=== PATIENT | male | born 1950 | race Caucasian/White ===

== ENCOUNTER → 2020-01-21 | Outpatient (CLI) | payer MEDICARE ==
[~2020-01-21] MED LIST: CATHETER FLUSH 10 ML SYR IV PRN; HOLD METFORMIN - RECEIVED CONTRAST 20 ML VIAL IV SCH; IOHEXOL 350 MG/ML 100 ML (OMNIPAQUE 350) VIAL IV ONE; NS 100 ML (IVPB) BAG IV ONE
--- NOTE | 2020-01-21 10:48 | Diagnostic Imaging Report ---
EXAMINATION: CT Abdomen and Pelvis with intravenous contrast. TECHNIQUE: Multiple contiguous axial images were obtained through the abdomen and pelvis after the uneventful administration of intravenous contrast. All CT scans use one or more of the following dose optimizing techniques: automated exposure control, MA and/or KvP adjustment based on a patient size and exam type, or iterative reconstruction. HISTORY: Right lower quadrant pain. COMPARISON: None available. FINDINGS: Limited views of the lower thorax are unremarkable. There is an indeterminate 8 mm lesion in segment II of the liver. There is no biliary ductal dilation. Gallbladder is normal. Pancreas is normal. Spleen is normal. Adrenal glands are normal. The kidneys are normal. There is no hydronephrosis. Urinary bladder is normal. Visualized bowel is normal in caliber without obstruction or inflammation. The appendix is normal. No free fluid or air. No abdominal or pelvic lymphadenopathy. 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 There is no aortic aneurysm. There are no suspicious osseous lesions. IMPRESSION: 1. 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 2. Normal appendix. 3. Indeterminate 8 mm lesion in segment II of the liver. In the absence of a known malignancy, no specific follow-up is needed. Otherwise, liver MRI with Gadavist is recommended. Dictated by: Dictated on workstation # [id number]
== END ==
LOC: RAD FS 09:53
PROVIDERS: ATTEND Family Medicine
DX: I74.5 Embolism and thrombosis of iliac artery (principal); K76.89 Other specified diseases of liver
CPT/HCPCS: 74177

== ENCOUNTER 2020-02-19 06:49 | Emergency (ER) | payer MEDICARE, OTHER ==
[2020-02-19] MEDS ORDERED: FAMOTIDINE 20MG/2ML IV (PEPCID) IV STA (07:05)
--- NOTE | 2020-02-19 07:05 | ED Abdominal Pain ---
General Stated Complaint: ABD PAIN Source of Information: Patient History of Present Illness Date Seen by Provider: Feb 19, 2020 Time Seen by Provider: 06:57 Initial Comments 69-year-old male presents with abdominal pain. Patient reports he's been having abdominal pain on and off for about 3 weeks. It is located in the mid abdomen. He reports that for the last couple days she's had it that got worse yesterday. Had a normal bowel movement. No nausea vomiting diarrhea fevers or chills. He was seen couple weeks ago was started on Cipro Flagyl but has not finished them. He stopped taking the Flagyl because he felt is getting worse. No other systemic complaints. Allergies and Home Medications Allergies Coded Allergies: No Known Drug Allergies (Unverified , 02/19/20) Home Medications Dicyclomine HCl 20 Mg Tablet, 20 MG PO Q6H PRN for PAIN-MODERATE (5-7) Prescribed by: BRANDON ISRAEL on 02/19/20 0916 Patient Home Medication List Home Medication List Reviewed: Yes Review of Systems Review of Systems Constitutional: No chills, No fever Respiratory: Denies Cough, Denies Shortness of Air Cardiovascular: Denies Chest Pain, Denies Irregular Heart Rate Gastrointestinal: Abdominal Pain; Denies Diarrhea, Denies Nausea, Denies Vomiting Genitourinary: No Symptoms Reported Musculoskeletal: no symptoms reported Skin: no symptoms reported Psychiatric/Neurological: No Symptoms Reported Past Giispvj-Ytzjws-Vsqrqj Hx Past Med/Social Hx: Reviewed Nursing Past Med/Soc Hx Patient Social History Recent Foreign Travel: No Contact w/Someone Who Travel: No Physical Exam Vital Signs Vital Signs - First Documented 02/19/20 06:57 Temp 36.8 Pulse 88 Resp 16 B/P (MAP) 148/70 (96) Pulse Ox 95 O2 Delivery Room Air Capillary Refill : Height/Weight/BMI Height: '" Weight: lbs. oz. kg; BMI Method: General Appearance: WD/WN, no apparent distress, thin HEENT: PERRL/EOMI Neck: supple, normal inspection Respiratory: lungs clear, normal breath sounds Cardiovascular: normal peripheral pulses, regular rate, rhythm Gastrointestinal: soft; No guarding, No rebound; tenderness (minimal mid abdomen ) Extremities: normal range of motion Neurologic/Psychiatric: alert, normal mood/affect, oriented x 3 Skin: normal color, warm/dry Lymphatic: no adenopathy Focused Exam Lactate Level 02/19/20 07:30: Lactic Acid Level 0.79 Lactic Acid Level Laboratory Tests Test 02/19/20 07:30 Lactic Acid Level 0.79 MMOL/L (0.50-2.00) Progress/Results/Core Measures Results/Orders Lab Results Laboratory Tests Test 02/19/20 07:10 02/19/20 07:30 02/19/20 07:58 Range/Units White Blood Count 10.5 4.3-11.0 10^3/uL Red Blood Count 4.12 L 4.35-5.85 10^6/uL Hemoglobin 12.8 L 13.3-17.7 G/DL Hematocrit 38 L 40-54 % Mean Corpuscular Volume 91 80-99 FL Mean Corpuscular Hemoglobin 31 25-34 PG Mean Corpuscular Hemoglobin Concent 34 32-36 G/DL Red Cell Distribution Width 12.9 10.0-14.5 % Platelet Count 352 130-400 10^3/uL Mean Platelet Volume 8.4 7.4-10.4 FL Immature Granulocyte % (Auto) 0 % Neutrophils (%) (Auto) 79 H 42-75 % Lymphocytes (%) (Auto) 13 12-44 % Monocytes (%) (Auto) 5 0-12 % Eosinophils (%) (Auto) 3 0-10 % Basophils (%) (Auto) 1 0-10 % Neutrophils # (Auto) 8.2 H 1.8-7.8 X 10^3 Lymphocytes # (Auto) 1.4 1.0-4.0 X 10^3 Monocytes # (Auto) 0.5 0.0-1.0 X 10^3 Eosinophils # (Auto) 0.3 0.0-0.3 10^3/uL Basophils # (Auto) 0.1 0.0-0.1 10^3/uL Immature Granulocyte # (Auto) 0.1 0.0-0.1 10^3/uL Sodium Level 135 135-145 MMOL/L Potassium Level 4.3 3.6-5.0 MMOL/L Chloride Level 98 98-107 MMOL/L Carbon Dioxide Level 27 21-32 MMOL/L Anion Gap 10 5-14 MMOL/L Blood Urea Nitrogen 8 7-18 MG/DL Creatinine 0.86 0.60-1.30 MG/DL Estimat Glomerular Filtration Rate > 60 BUN/Creatinine Ratio 9 Glucose Level 153 H 70-105 MG/DL Calcium Level 10.5 H 8.5-10.1 MG/DL Corrected Calcium 10.3 H 8.5-10.1 MG/DL Total Bilirubin 0.2 0.1-1.0 MG/DL Aspartate Amino Transf (AST/SGOT) 15 5-34 U/L Alanine Aminotransferase (ALT/SGPT) 12 0-55 U/L Alkaline Phosphatase 80 40-136 U/L C-Reactive Protein 3.08 H <0.50 MG/DL Total Protein 7.1 6.4-8.2 GM/DL Albumin 4.3 3.2-4.5 GM/DL Lipase 27 8-78 U/L Lactic Acid Level 0.79 0.50-2.00 MMOL/L Urine Color YELLOW Urine Clarity SLT CLOUDY Urine pH 6.0 5-9 Urine Specific [place] >=1.030 1.016-1.022 Urine Protein TRACE H NEGATIVE Urine Glucose (UA) NEGATIVE NEGATIVE Urine Ketones NEGATIVE NEGATIVE Urine Nitrite NEGATIVE NEGATIVE Urine Bilirubin NEGATIVE NEGATIVE Urine Urobilinogen 0.2 < = 1.0 MG/DL Urine Leukocyte Esterase NEGATIVE NEGATIVE Urine RBC (Auto) TRACE H NEGATIVE Urine RBC 0-2 /HPF Urine WBC 0-2 /HPF Urine Squamous Epithelial Cells RARE /HPF Urine Crystals NONE /LPF Urine Bacteria FEW H /HPF Urine Casts PRESENT /LPF Urine Hyaline Casts 2-5 H /LPF Urine Mucus MODERATE H /LPF Urine Culture Indicated NO My Orders Orders - ISRAEL,BRANDON L DO Cbc With Automated Diff (02/19/20 07:05) Comprehensive Metabolic Panel (02/19/20 07:05) Lactic Acid Analyzer (02/19/20 07:05) Lipase (02/19/20 07:05) Ua Culture If Indicated (02/19/20 07:05) Crp Fs (02/19/20 07:05) Acute Abd Series (02/19/20 07:05) Famotidine Injection (Pepcid Injection) (02/19/20 07:05) Ed Iv/Invasive Line Start (02/19/20 07:05) Ct Abdomen/Pelvis W (02/19/20 08:05) Iohexol Injection (Omnipaque 350 Mg/Ml 1 (02/19/20 08:15) Received Contrast (Hold Metformin- Contr (02/19/20 08:15) Sodium Chloride Flush (Catheter Flush Sy (02/19/20 08:15) Ns (Ivpb) (Sodium Chloride 0.9% Ivpb Bag (02/19/20 08:15) Medications Given in ED Current Medications Medications Dose Ordered Sig/Deyanira Route Start Time Stop Time Status Last Admin Dose Admin Iohexol 100 ml ONCE ONCE IV 02/19/20 08:15 02/19/20 08:16 DC 02/19/20 08:32 100 ML Sodium Chloride 10 ml NEEDED PRN IV 02/19/20 08:15 02/19/20 08:33 10 ML Sodium Chloride 100 ml ONCE ONCE IV 02/19/20 08:15 02/19/20 08:16 DC 02/19/20 08:32 100 ML Vital Signs/I&O 02/19/20 06:57 Temp 36.8 Pulse 88 Resp 16 B/P (MAP) 148/70 (96) Pulse Ox 95 O2 Delivery Room Air Progress Progress Note : Time: 09:17 Progress Note Patient with some inflammation consistent with likely gastritis/duodenitis on CT exam. Recommend patient finishes Cipro Flagyl that was prescribed a month ago that he didn't take. I did discuss with him the need to follow-up with his primary care provider to arrange for an outpatient GI/general surgery consult to arrange for an EGD. Recommended Pepcid and omeprazole daily. I did prescribe him some Bentyl to see if there is any help with the pain. Patient stable and discharged home Diagnostic Imaging Diagonstic Imaging: Xray, CT Plain Films/CT/US/NM/MRI: abdomen Comments [facility] [place], [place] NAME: DANIELLA MARCOS [facility] REC#: [id number] PT STATUS: REG ER : 1950 PHYSICIAN: BRANDON ISRAEL DO ADMIT DATE: 02/19/20/ER FS Draft Date of Exam:02/19/20 ACUTE ABD SERIES INDICATION: Abdominal pain Supine and upright views of the abdomen are obtained with single view of the chest. Lungs appear clear, bilaterally. There is gaseous distention of small and large bowel. No definite transition point is seen to indicate an obstruction. There is no evidence of free intraperitoneal gas or pneumatosis. IMPRESSION: Gaseous distention of small and large bowel could reflect mild ileus. Otherwise, no acute abdominal abnormality is identified. Dictated on workstation # [id number] Dict: 02/19/2027 Trans: 02/19/20 0732 [facility] [id number] Interpreted by: AMRITA ALTAMIRANO MD Electronically signed by: Draft Date of Exam:02/19/20 CT ABDOMEN/PELVIS W INDICATION: Abdominal pain. TECHNIQUE: Multiple contiguous axial images were obtained through the abdomen and pelvis after administration of intravenous contrast. Auto Exposure Controls were utilized during the CT exam to meet ALARA standards for radiation dose reduction. All CT scans use one or more of the following dose optimizing techniques: automated exposure control, MA and/or KvP adjustment based on patient size and exam type or iterative reconstruction. Comparison made to prior study of 01/21/2020. The visualized portions of the lung bases are clear. There were no pleural fluid collections. There is no free intraperitoneal air. The liver shows no focal lesion. The area questioned in the left lobe the liver on the previous study is no longer apparent and may have been artifactual due to volume averaging. The spleen, adrenals, and pancreas appear normal. The kidneys bilaterally are unremarkable. There is no retroperitoneal mass or adenopathy. There is no ascites or abnormal fluid collection. There is no pelvic mass or lymphadenopathy. The prostate gland is somewhat enlarged. Visualized bowel loops show no sign of bowel obstruction. There is prominent stool in the colon. The appendix appears normal. There appears to be some thickening and irregularity of the distal stomach and duodenal bulb, consider correlation with endoscopy. There are some adjacent fat stranding about the distal stomach and proximal duodenum. Chronic appearing right common iliac artery occlusion is noted and unchanged. IMPRESSION: There is abnormal thickening and adjacent inflammatory change about the distal stomach and proximal duodenum, consider endoscopy for further evaluation. There is no sign of free air or abscess. The appendix appears normal. There is no sign of bowel obstruction. There is some prostatic enlargement. 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 The area questioned in the left lobe of the liver on prior study is no longer present and may have been artifactual. Dictated on workstation # [id number] Dict: 02/19/20 0854 Trans: 02/19/20 0906 [facility] [id number] Interpreted by: SCHMALTZ Departure Impression Primary Impression: Gastritis and duodenitis Disposition: 01 HOME, SELF-CARE Condition: Stable Departure-Patient Inst. Referrals: LYNDON HERNANDEZ MD (PCP/Family) Primary Care Physician Patient Instructions: Gastritis ED Add. Discharge Instructions: Please start ranitidine 20 mg daily and omeprazole as directed on package Follow-up with your primary care provider to arrange for an outpatient general surgery or GI consult for an EGD Return to the ER as needed Scripts Dicyclomine HCl (Dicyclomine HCl) 20 Mg Tablet 20 MG PO Q6H PRN for PAIN-MODERATE (5-7), #20 TAB Prov: BRANDON ISRAEL DO 02/19/20 BRANDON ISRAEL DO Feb 19, 2020 07:05
[2020-02-19 07:19] LABS: HEMATOCRIT 38 % (40-54); HEMOGLOBIN 12.8 G/DL (13.3-17.7); MEAN CORPUSCULAR HEMOGLOBIN 31 PG (25-34); MEAN CORPUSCULAR HGB CONC 34 G/DL (32-36); MEAN CORPUSCULAR VOLUME 91 FL (80-99); MEAN PLATELET VOLUME 8.4 FL (7.4-10.4); NEUTROPHILS % (AUTO) 79 % (42-75); PLATELET COUNT 352 10^3/uL (130-400); WHITE BLOOD COUNT 10.5 10^3/uL (4.3-11.0)
[2020-02-19 07:20] LABS: BASOPHILS # (AUTO) 0.1 10^3/uL (0.0-0.1); BASOPHILS % (AUTO) 1 % (0-10); EOSINOPHILS # (AUTO) 0.3 10^3/uL (0.0-0.3); EOSINOPHILS % (AUTO) 3 % (0-10); LYMPHOCYTES # (AUTO) 1.4 X 10^3 (1.0-4.0); LYMPHOCYTES % (AUTO) 13 % (12-44); MONOCYTES # (AUTO) 0.5 X 10^3 (0.0-1.0); MONOCYTES % (AUTO) 5 % (0-12); NEUTROPHILS # (AUTO) 8.2 X 10^3 (1.8-7.8)
--- NOTE | 2020-02-19 07:33 | Diagnostic Imaging Report ---
INDICATION: Abdominal pain Supine and upright views of the abdomen are obtained with single view of the chest. Lungs appear clear, bilaterally. There is gaseous distention of small and large bowel. No definite transition point is seen to indicate an obstruction. There is no evidence of free intraperitoneal gas or pneumatosis. IMPRESSION: Gaseous distention of small and large bowel could reflect mild ileus. Otherwise, no acute abdominal abnormality is identified. Dictated by: Dictated on workstation # [id number]
[2020-02-19 07:41] LABS: CHLORIDE 98 MMOL/L (98-107); POTASSIUM 4.3 MMOL/L (3.6-5.0); SODIUM 135 MMOL/L (135-145)
[2020-02-19 07:42] LABS: ALANINE AMINOTRANSFERASE 12 U/L (0-55); ALBUMIN 4.3 GM/DL (3.2-4.5); ALKALINE PHOSPHATASE 80 U/L (40-136); BILIRUBIN,TOTAL 0.2 MG/DL (0.1-1.0); BUN/CREATININE RATIO 9; CALCIUM 10.5 MG/DL (8.5-10.1); CARBON DIOXIDE 27 MMOL/L (21-32); CREATININE SERUM 0.86 MG/DL (0.60-1.30); GFR ESTIMATED > 60; GLUCOSE 153 MG/DL (70-105); LIPASE 27 U/L (8-78); TOTAL PROTEIN 7.1 GM/DL (6.4-8.2)
[2020-02-19] MEDS ORDERED: NS 100 ML (IVPB) BAG IV ONE (08:15)
[2020-02-19] MEDS ORDERED: IOHEXOL 350 MG/ML 100 ML (OMNIPAQUE 350) VIAL IV ONE (08:15)
[2020-02-19] MEDS ORDERED: CATHETER FLUSH 10 ML SYR IV PRN (08:15)
[2020-02-19] MEDS ORDERED: HOLD METFORMIN - RECEIVED CONTRAST 20 ML VIAL IV SCH (08:15)
[2020-02-19 08:16] LABS: CLARITY,URINE SLT CLOUDY; COLOR,URINE YELLOW; GLUCOSE, URINE (UA) NEGATIVE (NEGATIVE); PROTEIN,URINE TRACE (NEGATIVE)
[2020-02-19 08:17] LABS: BACTERIA,URINE FEW /HPF; BILIRUBIN,URINE NEGATIVE (NEGATIVE); KETONES,URINE NEGATIVE (NEGATIVE); LEUKOCYTE ESTERASE ,URINE NEGATIVE (NEGATIVE); NITRITE,URINE NEGATIVE (NEGATIVE); RBC,URINE 0-2 /HPF; SQUAMOUS EPITHELIAL CELL,UR RARE /HPF; WBC,URINE 0-2 /HPF
--- NOTE | 2020-02-19 09:06 | Diagnostic Imaging Report ---
INDICATION: Abdominal pain. TECHNIQUE: Multiple contiguous axial images were obtained through the abdomen and pelvis after administration of intravenous contrast. Auto Exposure Controls were utilized during the CT exam to meet ALARA standards for radiation dose reduction. All CT scans use one or more of the following dose optimizing techniques: automated exposure control, MA and/or KvP adjustment based on patient size and exam type or iterative reconstruction. Comparison made to prior study of 01/21/2020. The visualized portions of the lung bases are clear. There were no pleural fluid collections. There is no free intraperitoneal air. The liver shows no focal lesion. The area questioned in the left lobe the liver on the previous study is no longer apparent and may have been artifactual due to volume averaging. The spleen, adrenals, and pancreas appear normal. The kidneys bilaterally are unremarkable. There is no retroperitoneal mass or adenopathy. There is no ascites or abnormal fluid collection. There is no pelvic mass or lymphadenopathy. The prostate gland is somewhat enlarged. Visualized bowel loops show no sign of bowel obstruction. There is prominent stool in the colon. The appendix appears normal. There appears to be some thickening and irregularity of the distal stomach and duodenal bulb, consider correlation with endoscopy. There are some adjacent fat stranding about the distal stomach and proximal duodenum. Chronic appearing right common iliac artery occlusion is noted and unchanged. IMPRESSION: There is abnormal thickening and adjacent inflammatory change about the distal stomach and proximal duodenum, consider endoscopy for further evaluation. There is no sign of free air or abscess. The appendix appears normal. There is no sign of bowel obstruction. There is some prostatic enlargement. 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 The area questioned in the left lobe of the liver on prior study is no longer present and may have been artifactual. Dictated by: Dictated on workstation # [id number]
[2020-02-19] MEDS ORDERED: DICY20TA10 PO (09:16)
[2020-02-19 09:24] VITALS: BP 145/70
== END 2020-02-19 09:21 | disposition home or self-care (01) ==
LOC: EDUNIT# 06:49 → ER FS 06:53
DX: K29.70 Gastritis, unspecified, without bleeding (principal); K29.80 Duodenitis without bleeding
CPT/HCPCS: 36415; 74022; 74177; 80053; 81000; 83605; 83690; 85025; 86141

== ENCOUNTER → 2022-07-06 | Outpatient (CLI) | payer MEDICARE, OTHER ==
[~2022-07-06] MED LIST changes: -CATHETER FLUSH 10 ML SYR IV PRN; +DICY20TA PO; -HOLD METFORMIN - RECEIVED CONTRAST 20 ML VIAL IV SCH; -IOHEXOL 350 MG/ML 100 ML (OMNIPAQUE 350) VIAL IV ONE; -NS 100 ML (IVPB) BAG IV ONE
--- NOTE | 2022-07-06 11:45 | Diagnostic Imaging Report ---
PROCEDURE: MRI left upper extremity without contrast. TECHNIQUE: Multiplanar, multisequence non contrast-enhanced MRI of the left upper extremity was accomplished. INDICATION: Left shoulder pain COMPARISON: None FINDINGS: No acute fracture seen in the left shoulder. Alignment appears normal. There are mild degenerative changes in the glenohumeral joint and moderate degenerative change in the acromioclavicular joint. There is a minimal joint effusion. The supraspinatus tendon appears intact. The infraspinatus tendon is intact. The teres minor tendon is intact. The subscapularis tendon demonstrates low-grade fraying at the undersurface with low-grade partial-thickness tearing of the cranial fibers. No muscular atrophy is seen. The long head of the biceps tendon demonstrates longitudinal partial split tearing proximally with tendinosis of the tendon near the genu. The tendon is partially subluxed medially, perched on the lesser tuberosity. The glenoid labrum is suboptimally evaluated in the absence of intra-articular contrast. No para labral cyst is seen. The acromion has a curved undersurface. The coracoclavicular and coracoacromial ligaments are intact. There is mild subacromial spurring. There is mild fluid in the subacromial subdeltoid bursa. IMPRESSION: 1. Low-grade partial-thickness tearing of the subscapularis tendon. No muscular atrophy. 2. Longitudinal split tear, tendinosis and medial subluxation of the long head of the biceps tendon. 3. Degenerative changes in the left shoulder with subacromial spurring. Mild subacromial subdeltoid bursitis. Dictated by: Dictated on workstation # [id number]
== END ==
LOC: RAD 10:15
PROVIDERS: ATTEND Orthopaedic Surgery
DX: S46.812A Strain of other muscles, fascia and tendons at shoulder and upper arm level, left arm, initial encounter (principal); S46.112A Strain of muscle, fascia and tendon of long head of biceps, left arm, initial encounter; M75.22 Bicipital tendinitis, left shoulder; M19.012 Primary osteoarthritis, left shoulder; M75.52 Bursitis of left shoulder; X58.XXXA Exposure to other specified factors, initial encounter
CPT/HCPCS: 73221